=== PATIENT | male | born 1995 | race Caucasian/White ===

== ENCOUNTER 2022-04-20 15:43 | Outpatient (CLI) | payer OTHER ==
--- NOTE | 2022-04-20 16:49 | XRAY Report ---
PROCEDURE: Chest 2 View X-Ray INDICATIONS: CHEST WALL PAIN TECHNIQUE: 2 view(s) of the chest. COMPARISON: None. FINDINGS: Surgical changes and devices: None. Lungs and pleura: No pleural effusions or pneumothorax. Lungs are clear. Mediastinum: Mediastinal contours are normal. Heart size is normal. Bones and chest wall: No suspicious bony abnormalities. Soft tissues appear unremarkable. IMPRESSION: No acute process. Reviewed by: Sanjay Knight MD on 04/20/2022 4:48 PM PDT Approved by: Sanjay Knight MD on 04/20/2022 4:48 PM PDT Station ID: [id number]
== END 2022-04-20 15:44 | disposition home or self-care (01) ==
LOC: DI 15:43
PROVIDERS: ATTEND Nurse Practitioner
DX: R07.89 Other chest pain (principal)

== ENCOUNTER 2022-12-25 11:05 | Emergency (ER) | payer OTHER ==
--- NOTE | 2022-12-25 12:40 | ED Physician Documentation ---
History of Present Illness - Stated complaint Stated Complaint: CHEST PX - Chief complaint Chief Complaint: Cardiac - Additonal information Additional information: 27-year-old male presents emergency department for evaluation of several days chest pain. Mostly right-sided but does occur on the left. He feels like a popping in his lungs when he takes a deep breath. Pain is worse when he lays supine. It is sometimes exertional. He is able to reproduce it by moving his arms. No fevers. No cough. No hemoptysis. No hormones. He did travel to [place] via airplane about a month ago it was only a 2-hour flight. No unilateral leg swelling. He does not smoke or vape. He has had this similarly in the past that self resolved. He contacted [facility] who told him to come to the ER for evaluation. Review of Systems Constitutional: denies: Fever, Myalgias Eyes: reports: Reviewed and negative Nose: reports: Reviewed and negative Throat: reports: Reviewed and negative Cardiac: reports: Chest pain / pressure. denies: Palpitations, Pedal edema, Calf pain Respiratory: reports: Reviewed and negative GI: reports: Reviewed and negative : reports: Reviewed and negative Skin: reports: Reviewed and negative Musculoskeletal: reports: Reviewed and negative PD PAST MEDICAL HISTORY - Present Medications Home Medications: Ambulatory Orders Medication Instructions Recorded Confirmed Colchicine 0.6 mg PO DAILY #30 tablet 12/25/22 Ibuprofen [Motrin] 600 mg PO TID 21 Days #30 tab 12/25/22 Pantoprazole Sodium [Protonix] 40 mg PO DAILY 30 Days #30 tab 12/25/22 - Allergies Allergies/Adverse Reactions: Allergies Allergy/AdvReac Type Severity Reaction Status Date / Time No Known Drug Allergies Allergy Verified 12/25/22 11:16 PD ED PE NORMAL - General General: Alert and oriented X 3, No acute distress - HEENT HEENT: Atraumatic, Moist mucous membranes, Pharynx benign - Neck Neck: Supple, no meningeal sign, No adenopathy - Cardiac Cardiac: RRR, No murmur, No gallop, No rub, Strong equal pulses, Other (Reproducible chest pain with palpation to the right anterior chest. No crepitus ecchymosis or erythema or rash noted) - Respiratory Respiratory: No respiratory distress, Clear bilaterally - Abdomen Abdomen: Normal bowel sounds, Soft, Non tender, Non distended - Back Back: No CVA TTP, No spinal TTP - Derm Derm: Warm and dry - Extremities Extremities: No deformity - Neuro Neuro: Alert and oriented X 3 Eye Opening: Spontaneous Motor: Obeys Commands Verbal: Oriented GCS Score: 15 Results - Vitals Vitals: Vital Signs - 24 hr 12/25/22 12/25/22 12/25/22 11:12 12:35 13:00 Temperature 36.2 C L Heart Rate 74 65 63 Respiratory 16 16 16 Rate Blood Pressure 130/70 112/69 101/60 O2 Saturation 100 100 100 12/25/22 12/25/22 13:30 15:35 Temperature Heart Rate 68 63 Respiratory 16 14 Rate Blood Pressure 118/65 109/65 O2 Saturation 100 100 Oxygen O2 Source Room air - EKG (time done) 1113 EKG releavant findings:: EKG personally interpreted by author of this note. Relevant findings are: Rate: Rate (enter#) (76) Rhythm: NSR [place]: Normal Intervals: Normal DC QRS: Normal Ischemia: Normal ST segments Compare to prior EKG: Old EKG unavailable Computer interpretation: Agree with computer - Labs Labs: Laboratory Tests 12/25/22 12/25/22 12/25/22 12:44 12:44 12:44 WBC 6.5 RBC 5.10 Hgb 14.8 Hct 44.6 MCV 87.5 MCH 29.0 MCHC 33.2 RDW 12.3 Plt Count 280 MPV 9.3 Neut # (Auto) 3.6 Lymph # (Auto) 2.0 [place] # (Auto) 0.6 Eos # (Auto) 0.2 Baso # (Auto) 0.1 Absolute Nucleated RBC 0.00 Nucleated RBC % 0.0 Sodium 139 Potassium 4.1 Chloride 100 L Carbon Dioxide 27 Anion Gap 12.0 BUN 15 Creatinine 1.1 Estimated GFR (MDRD) 80 L Glucose 93 Calcium 9.5 Troponin I High Sens 81.4 H* Nasal Adenovirus (PCR) Nasal B. parapertussis DNA (PCR) Nasal Coronavir 229E PCR Nasal Coronavir HKU1 PCR Nasal Coronavir NL63 PCR Nasal Coronavir OC43 PCR Nasal Enterovir/Rhinovir PCR Nasal Influenza B PCR Nasal Influenza A PCR Nasal Parainfluen 1 PCR Nasal Parainfluen 2 PCR Nasal Parainfluen 3 PCR Nasal Parainfluen 4 PCR Nasal RSV (PCR) Nasal B.pertussis DNA PCR Nasal C.pneumoniae (PCR) Sunday Human Metapneumo PCR Nasal M.pneumoniae (PCR) Nasal SARS-CoV-2 (PCR) 12/25/22 12/25/22 13:20 14:24 WBC RBC Hgb Hct MCV MCH MCHC RDW Plt Count MPV Neut # (Auto) Lymph # (Auto) [place] # (Auto) Eos # (Auto) Baso # (Auto) Absolute Nucleated RBC Nucleated RBC % Sodium Potassium Chloride Carbon Dioxide Anion Gap BUN Creatinine Estimated GFR (MDRD) Glucose Calcium Troponin I High Sens 63.5 H* Nasal Adenovirus (PCR) NOT DETECTED Nasal B. parapertussis DNA (PCR) NOT DETECTED Nasal Coronavir 229E PCR NOT DETECTED Nasal Coronavir HKU1 PCR NOT DETECTED Nasal Coronavir NL63 PCR NOT DETECTED Nasal Coronavir OC43 PCR NOT DETECTED Nasal Enterovir/Rhinovir PCR NOT DETECTED Nasal Influenza B PCR NOT DETECTED Nasal Influenza A PCR NOT DETECTED Nasal Parainfluen 1 PCR NOT DETECTED Nasal Parainfluen 2 PCR NOT DETECTED Nasal Parainfluen 3 PCR NOT DETECTED Nasal Parainfluen 4 PCR NOT DETECTED Nasal RSV (PCR) NOT DETECTED Nasal B.pertussis DNA PCR NOT DETECTED Nasal C.pneumoniae (PCR) NOT DETECTED Sunday Human Metapneumo PCR NOT DETECTED Nasal M.pneumoniae (PCR) NOT DETECTED Nasal SARS-CoV-2 (PCR) NOT DETECTED - Rads (name of study) cxr Relevant Findings:: Final report received (No acute cardiopulmonary process) CT pulmonary angio Relevant Findings:: Final report received (No pulmonary embolus. No acute cardiopulmonary process) echocardiogram Relevant Findings:: Other (Preliminary report indicates no pericardial effusion. Ejection fraction greater than 60%. No worrisome mitral or tricuspid regurg. No aortic stenosis) PD Medical Decision Making - ED course Complexity details: reviewed results, re-evaluated patient, considered differential, d/w patient ED course: 27-year-old male presents emergency department for evaluation of several days bilateral chest pain though right greater than left. It is worse when laying flat. It is also reproducible on exam. He has had no cough fevers or hemoptysis. He did travel via airplane to [place] about 1 month ago. On presentation to the emergency department he is remarkably well-appearing without worrisome vital sign abnormality hypotension tachycardia or hypertension. An EKG is interpreted by myself showed no acute ischemic findings. A chest x-ray showed no findings suggest pneumonia, pleural effusion or pneumothorax or cardiomegaly. Subsequently CBC was obtained which showed no acute findings but his high-sensitivity troponin was mildly elevated at 81. On repeat it was 63. Without a clear reason for the mildly elevated troponin and the history of recent travel though he would otherwise be Wells criteria negative, a CT pulmonary angiogram was completed to rule out a pulmonary embolus. As interpreted by the radiologist the T8 CT pulmonary angio was negative. Other differentials for consideration of this chest pain include pericarditis, myocarditis, Takotsubo or extreme stress reaction. Patient does endorse drinking about 300 mg of caffeine daily. Despite downtrending troponins, this is however an unexpected finding in a young 27-year-old male. Therefore, I am going to reach out to [facility] cardiology to get further input and evaluation. 1635: I have spoken with Dr. Moncada cardiology on-call at [facility]. I was able to discuss the patient's clinical presentation, my EKG findings, laboratory findings including a downtrending troponin and a negative pulmonary angiogram. Dr. Langley feels the patient likely has pericarditis. He would recommend an echocardiogram at the bedside today. In the setting of pericarditis we may expect to find a small pericardial effusion but if no other worrisome abnormalities are seen he feels the patient would be safe to be discharged home and treated as an outpatient. He would recommend 3 to 4 weeks of ibuprofen in association with a PPI for GI prophylaxis. He would also recommend colchicine daily for the next 3 months including a 2 mg loading dose here in the ER. 1750: Echocardiogram has been completed. I have reviewed the pulmonary results which indicate a normal ejection fraction without pericardial effusion or worrisome valvular regurg or aortic stenosis. I discussed the plan with the patient to discharge with empiric treatment for suspected pericarditis which would include 3 weeks of NSAID/ibuprofen, 3 months of colchicine as well and was Protonix for GI prophylaxis. He will request referral to cardiology for follow-up through [facility]. We did discuss the usual emergent return precautions for worsening symptoms Departure - Departure Disposition: 01 Home, Self Care Clinical Impression: Elevated troponin Pericarditis Qualifiers: Pericarditis type: unspecified type Chronicity: acute Qualified Code(s): I30.9 - Acute pericarditis, unspecified Chest pain Qualifiers: Chest pain type: pleurodynia Qualified Code(s): R07.81 - Pleurodynia Condition: Stable Record reviewed to determine appropriate education?: Yes Instructions: Pericarditis, ED Chest Pain Pericarditis Prescriptions: Colchicine 0.6 mg PO DAILY #30 tablet Ibuprofen [Motrin] 600 mg PO TID 21 Days #30 tab Pantoprazole Sodium [Protonix] 40 mg PO DAILY 30 Days #30 tab Comments: Haim you came to the emergency department today because you have been having several days of chest pain that is associated with laying flat, walking as well as deep breaths. As discussed at the bedside your EKG did not show any worrisome findings. However when we did obtain labs you had a mildly elevated troponin. This is a chemical that can be released from the heart during times of inflammation. We did obtain a CT of your chest to ensure that there was no pulmonary embolism and this was also essentially normal. After discussion with cardiology at [facility] they feel that your history is most consistent with pericarditis and I am inclined to agree. This is typically an inflammation of the heart muscle that can cause chest pain and the elevated troponins. The usual treatment of this is about 3 weeks of ibuprofen taken 3 times daily followed by 3 months of a different type of NSAID medication called colchicine. Because these medications can cause a lot of gastric upset you should also be taking Protonix with this. I do advise that you reduce your caffeine intake markedly. It is important that you follow-up with [facility] tomorrow. You should receive an urgent referral to cardiology for follow-up. I am not clearing you to return to work until seen by cardiology or [facility] feels that you are safe. Return to the emergency department for worsening symptoms, any fainting episodes severe shortness of air.
[2022-12-25] MEDS ORDERED: KETOROLAC 30 MG/ML VIAL IM STA (12:47)
[2022-12-25 12:50] LABS: BASOPHILS # (AUTO) 0.1 10^3/uL (0.0-0.1); BASOPHILS % (AUTO) 0.8 %; EOSINOPHILS # (AUTO) 0.2 10^3/uL (0.0-0.7); EOSINOPHILS % (AUTO) 2.8 %; HCT - HEMATOCRIT 44.6 % (42.0-52.0); HGB - HEMOGLOBIN 14.8 g/dL (14.0-18.0); LYMPHOCYTES % (AUTO) 31.5 %; MEAN CORPUSCULAR HGB CONC 33.2 g/dL (32.0-36.0); MEAN CORPUSCULAR VOLUME 87.5 fL (80.0-94.0); MEAN PLATELET VOLUME 9.3 fL (7.4-11.4); MONOCYTES # (AUTO) 0.6 10^3/uL (0.0-1.0); MONOCYTES % (AUTO) 9.1 %; NEUTROPHILS # (AUTO) 3.6 10^3/uL (1.5-6.6); NEUTROPHILS % (AUTO) 55.6 %; PLT - PLATELET COUNT 280 10^3/uL (130-450); RED CELL DISTRIBUTION WIDTH 12.3 % (12.0-15.0); WHITE BLOOD COUNT 6.5 x10^3/uL (4.8-10.8)
[2022-12-25 13:00] LABS: CALCIUM 9.5 mg/dL (8.5-10.3); CREATININE 1.1 mg/dL (0.6-1.2); POTASSIUM 4.1 mmol/L (3.5-5.0)
--- NOTE | 2022-12-25 13:11 | XRAY Report ---
PROCEDURE: Chest 1 View X-Ray INDICATIONS: chest pain TECHNIQUE: One view of the chest was acquired. COMPARISON: 04/20/2022 FINDINGS: Surgical changes and devices: None. Lungs and pleura: No pleural effusions or pneumothorax. Lungs are clear. Mediastinum: Mediastinal contours appear normal. Heart size is normal. Bones and chest wall: No suspicious bony lesions. Overlying soft tissues appear unremarkable. IMPRESSION: No acute radiographic abnormality. Reviewed by: Thomas Rosales MD on 12/25/2022 1:10 PM PDT Approved by: Thomas Rosales MD on 12/25/2022 1:10 PM PDT Station ID: [id number]
[2022-12-25] MEDS ORDERED: iohexoL-300 100 ML VIAL ONE (13:42)
[2022-12-25 14:35] LABS: B. PARAPERTUSSIS- RESP PCR PAN NOT DETECTED; B. PERTUSSIS- RESP PCR PANEL NOT DETECTED; C. PNEUMONIAE- RESP PCR PANEL NOT DETECTED; CORONAVIRUS 229E-RESP PCR NOT DETECTED; CORONAVIRUS HKU1-RESP PCR NOT DETECTED; CORONAVIRUS NL63-RESP PCR NOT DETECTED; CORONAVIRUS OC43-RESP PCR NOT DETECTED; HUMAN METAPNEUMOVIRUS NOT DETECTED; INFLUENZA A- RESP PCR PANEL NOT DETECTED; INFLUENZA B - RESP PCR PANEL NOT DETECTED; M. PNEUMONIAE- RESP PCR PANEL NOT DETECTED; PARAINFLUENZA VIRUS 1 NOT DETECTED; PARAINFLUENZA VIRUS 2 NOT DETECTED; PARAINFLUENZA VIRUS 3 NOT DETECTED; PARAINFLUENZA VIRUS 4 NOT DETECTED; RHINOVIRUS/ENTEROVIRUS NOT DETECTED; RSV- RESP PCR PANEL NOT DETECTED; SARS-CoV-2 -RESP PCR PANEL NOT DETECTED
[2022-12-25] MEDS ORDERED: iohexoL-300 100 ML VIAL IVP ONE (14:39)
--- NOTE | 2022-12-25 15:02 | CT Report ---
PROCEDURE: ANGIO CHEST W/WO INDICATIONS: pleuritic chest pain; + trop CONTRAST: Omni 300 80ml TECHNIQUE: After the administration of intravenous contrast, 2 mm axial images were acquired from the pulmonary apices to the posterior costophrenic angles during the arterial phase. In addition, 1 mm lung kernel and 5 mm soft tissue kernel reconstructions were performed. 3-dimensional coronal oblique maximum int ensity projection (MIP) reformats, 8 mm axial MIP, and 5 mm coronal and sagittal MPR reformats were t hen performed through the thorax. For radiation dose reduction, the following was used: automated exp osure control, adjustment of mA and/or kV according to patient size. COMPARISON: None FINDINGS: Image quality: Excellent. Large vessels: No filling defects within the opacified pulmonary arteries, accounting for motion and contrast timing. No evidence of acute aortic syndrome or aortic aneurysm. Lungs and pleura: No consolidation. Subpleural blebs within the left upper lobe anteriorly. No pleura l effusions. No pneumothorax. No suspicious pulmonary nodules which require follow up. Mediastinum: Heart size is normal. No pericardial effusions. No mediastinal adenopathy by size criter ia. Chest wall and lower neck: Thyroid is unremarkable. No axillary or supraclavicular adenopathy by size . Bones: No aggressive osseous abnormality. Upper Abdomen: Unremarkable. IMPRESSION: No pulmonary embolus. No acute cardiopulmonary process. Reviewed by: Sanjay Knight MD on 12/25/2022 3:00 PM PDT Approved by: Sanjay Knight MD on 12/25/2022 3:00 PM PDT Station ID: [id number]
[2022-12-25] MEDS ORDERED: IBUPROFEN 600 MG TABLET PO STA (16:30)
[2022-12-25] MEDS ORDERED: COLCHICINE 0.6 MG TABLET PO STA (16:34)
[2022-12-25 18:03] VITALS: BP 118/60
== END 2022-12-25 18:00 | disposition home or self-care (01) ==
LOC: ED 11:05
DX: I30.9 Acute pericarditis, unspecified (principal); R77.8 Other specified abnormalities of plasma proteins; R07.81 Pleurodynia; Z20.822 Contact with and (suspected) exposure to COVID-19
CPT/HCPCS: 36415; 71045; 71275; 80048; 84484; 85025; 87633; 93005; 93306; 96372; 99284; A9270; Q9967